=== PATIENT | female | born 2000 | race Caucasian/White ===

== ENCOUNTER → 2021-02-15 | Outpatient (CLI) | payer OTHER ==
[~2021-02-15] MED LIST: IBUP400 PO; NAPR220 PO
== END ==
LOC: LAB SHORT 10:20 → LAB 10:20
DX: Z32.00 Encounter for pregnancy test, result unknown (principal)
CPT/HCPCS: 84702

== ENCOUNTER → 2022-01-24 | Outpatient (CLI) | payer OTHER ==
[2022-01-24 18:33] LABS: Free Thyroxine 0.99 ng/dL (0.70-1.60)
[2022-01-24 18:37] LABS: Thyroid Stimulating Hormone 1.16 uIU/mL (0.360-4.800); Triiodothyronine, Free 3.07 pg/mL (2.18-3.98)
== END | disposition home or self-care (01) ==
LOC: LAB 15:30 → LAB SHORT 15:30
PROVIDERS: Registered Nurse Community Health
DX: N92.0 Excessive and frequent menstruation with regular cycle (principal)
CPT/HCPCS: 84439; 84443; 84481

== ENCOUNTER → 2022-02-08 | Outpatient (CLI) | payer OTHER | LOC: LAB 15:12 → LAB SHORT 15:12 | DX: N97.9 Female infertility, unspecified (principal) | CPT/HCPCS: 84144 ==

== ENCOUNTER → 2022-07-31 | Outpatient (CLI) | payer OTHER ==
[2022-07-31 16:57] LABS: Source, Urine Clean Catch
[2022-07-31 17:47] LABS: Appearance, Urine Clear (Clear); Bilirubin, Urine Neg (Neg); Blood, Urine Neg (Neg); Glucose Qualitative, Urine Neg (Neg); Ketones, Urine Neg (Neg); Leukocyte Esterase, Urine Neg (Neg); Nitrite, Urine Neg (Neg); Protein, Urine Neg (Neg); Specific Gravity, Urine 1.015 (1.003-1.022); Urobilinogen, Urine NORM (Normal)
[2022-07-31 17:54] LABS: Color, Urine Pale Yellow (P-Yellow)
[2022-07-31 17:57] LABS: BASOPHILS ABSOLUTE AUTO 0.06 K/mm3 (0.00-0.23); BASOPHILS PERCENT AUTO 1 % (0-2); EOSINOPHILS ABSOLUTE AUTO 0.08 K/mm3 (0.00-0.68); EOSINOPHILS PERCENT AUTO 1 % (0-6); Hematocrit 39.9 % (33.0-51.0); Hemoglobin 13.7 g/dL (11.5-16.0); IMMATURE GRAN ABSOLUTE AUTO 0.02 K/mm3 (0.00-0.10); IMMATURE GRAN PERCENT AUTO 0 % (0-1); LYMPHOCYTES ABSOLUTE AUTO 2.64 K/mm3 (0.84-5.20); LYMPHOCYTES PERCENT AUTO 28 % (21-46); MONOCYTES ABSOLUTE AUTO 0.49 K/mm3 (0.16-1.47); MONOCYTES PERCENT AUTO 5 % (4-13); Mean Corpuscular HGB 27.9 pg (26.0-34.0); Mean Corpuscular HGB Conc 34.3 g/dL (31.5-36.5); Mean Corpuscular Volume 81 fL (80-100); Mean Platelet Volume 10.5 fL (9.1-12.4); NEUTROPHILS ABSOLUTE AUTO 6.06 K/mm3 (1.96-9.15); NEUTROPHILS PERCENT AUTO 65 % (41-73); Platelet Count 303 K/mm3 (150-400); RDW Coefficient Variation 12.7 % (11.7-14.2); RDW Standard Deviation 37.5 fL (35.1-46.3); Red Blood Cell Count 4.91 M/mm3 (3.80-5.20); White Blood Cell Count 9.35 K/mm3 (4.00-11.30)
[2022-08-01 07:11] LABS: HIV AB/P24 AG SCREEN Non Reactive (Non Reactive)
[2022-08-01 10:11] LABS: HBSAG SCREEN Negative (Negative)
== END | disposition home or self-care (01) ==
LOC: LAB SHORT 15:40
PROVIDERS: Registered Nurse Community Health
DX: Z34.91 Encounter for supervision of normal pregnancy, unspecified, first trimester (principal)
CPT/HCPCS: 80055; 81003; 84443; 84702; 87086; 87389

== ENCOUNTER → 2022-09-09 | Outpatient (CLI) | payer OTHER ==
[2022-09-11 00:11] LABS: CHLAMYDIA TRACHOMATIS, NAA Negative (Negative)
== END | disposition home or self-care (01) ==
LOC: LAB 13:31 → LAB SHORT 13:31
PROVIDERS: Registered Nurse Community Health
DX: Z34.91 Encounter for supervision of normal pregnancy, unspecified, first trimester (principal)
CPT/HCPCS: 87491; 87591

== ENCOUNTER → 2023-01-09 | Outpatient (CLI) | payer OTHER ==
[2023-01-09 19:12] LABS: Hematocrit 34.6 % (33.0-51.0)
== END | disposition home or self-care (01) ==
LOC: LAB 15:05 → LAB SHORT 15:05
PROVIDERS: Registered Nurse Community Health
DX: Z34.03 Encounter for supervision of normal first pregnancy, third trimester (principal)
CPT/HCPCS: 82950; 85014; 85018

== ENCOUNTER → 2023-03-03 | Outpatient (CLI) | payer OTHER | END | disposition home or self-care (01) | LOC: LAB SHORT 12:50 → LAB 12:50 | DX: Z34.03 Encounter for supervision of normal first pregnancy, third trimester (principal) | CPT/HCPCS: 87081; 87150 ==

== ENCOUNTER → 2023-06-09 | Outpatient (CLI) | payer OTHER ==
[~2023-06-09] MED LIST changes: +IBUP800; +PRENATAL TABLE1 EAC2 PO
[2023-06-09 17:46] LABS: BASOPHILS ABSOLUTE AUTO 0.02 K/mm3 (0.00-0.23); BASOPHILS PERCENT AUTO 0 % (0-2); EOSINOPHILS ABSOLUTE AUTO 0.11 K/mm3 (0.00-0.68); EOSINOPHILS PERCENT AUTO 2 % (0-6); Hematocrit 36.1 % (33.0-51.0); Hemoglobin 11.9 g/dL (11.5-16.0); IMMATURE GRAN ABSOLUTE AUTO 0.01 K/mm3 (0.00-0.10); IMMATURE GRAN PERCENT AUTO 0 % (0-1); LYMPHOCYTES PERCENT AUTO 40 % (21-46); MONOCYTES ABSOLUTE AUTO 0.28 K/mm3 (0.16-1.47); MONOCYTES PERCENT AUTO 5 % (4-13); Mean Corpuscular HGB 26.4 pg (26.0-34.0); Mean Corpuscular Volume 80 fL (80-100); Mean Platelet Volume 11.2 fL (9.1-12.4); NEUTROPHILS ABSOLUTE AUTO 2.69 K/mm3 (1.96-9.15); NEUTROPHILS PERCENT AUTO 52 % (41-73); Platelet Count 290 K/mm3 (150-400); RDW Coefficient Variation 12.1 % (11.7-14.2); RDW Standard Deviation 35.1 fL (35.1-46.3); White Blood Cell Count 5.21 K/mm3 (4.00-11.30)
== END | disposition home or self-care (01) ==
LOC: LAB 17:03 → LAB SHORT 17:03
PROVIDERS: Registered Nurse Community Health
DX: R10.2 Pelvic and perineal pain (principal)
CPT/HCPCS: 85025; 87070; 87205

== ENCOUNTER → 2024-07-13 | Outpatient (CLI) | payer OTHER | LOC: LAB 16:41 → LAB SHORT 16:41 | DX: Z32.01 Encounter for pregnancy test, result positive (principal) | CPT/HCPCS: 84702 ==

== ENCOUNTER → 2024-07-15 | Outpatient (CLI) | payer OTHER ==
[2024-07-15 15:36] LABS: Progesterone 5.4 ng/mL
== END ==
LOC: LAB 13:26 → LAB SHORT 13:26
PROVIDERS: Registered Nurse Community Health
DX: Z34.91 Encounter for supervision of normal pregnancy, unspecified, first trimester (principal)
CPT/HCPCS: 84144; 84702

== ENCOUNTER → 2024-08-04 | Outpatient (CLI) | payer OTHER ==
[2024-08-04 09:50] LABS: Source, Urine Clean Catch
[2024-08-04 11:49] LABS: BASOPHILS ABSOLUTE AUTO 0.02 K/mm3 (0.00-0.23); BASOPHILS PERCENT AUTO 0 % (0-2); EOSINOPHILS ABSOLUTE AUTO 0.08 K/mm3 (0.00-0.68); EOSINOPHILS PERCENT AUTO 1 % (0-6); Hematocrit 35.6 % (33.0-51.0); Hemoglobin 12.2 g/dL (11.5-16.0); IMMATURE GRAN ABSOLUTE AUTO 0.02 K/mm3 (0.00-0.10); IMMATURE GRAN PERCENT AUTO 0 % (0-1); LYMPHOCYTES ABSOLUTE AUTO 1.78 K/mm3 (0.84-5.20); LYMPHOCYTES PERCENT AUTO 29 % (21-46); MONOCYTES ABSOLUTE AUTO 0.28 K/mm3 (0.16-1.47); MONOCYTES PERCENT AUTO 5 % (4-13); Mean Corpuscular HGB 27.5 pg (26.0-34.0); Mean Corpuscular HGB Conc 34.3 g/dL (31.5-36.5); Mean Corpuscular Volume 80 fL (80-100); Mean Platelet Volume 9.8 fL (9.1-12.4); NEUTROPHILS ABSOLUTE AUTO 3.99 K/mm3 (1.96-9.15); NEUTROPHILS PERCENT AUTO 65 % (41-73); Platelet Count 236 K/mm3 (150-400); RDW Coefficient Variation 12.8 % (11.7-14.2); RDW Standard Deviation 37.2 fL (35.1-46.3); Red Blood Cell Count 4.44 M/mm3 (3.80-5.20); White Blood Cell Count 6.17 K/mm3 (4.00-11.30)
[2024-08-04 11:59] LABS: Appearance, Urine Clear (Clear); Bilirubin, Urine Neg (Neg); Blood, Urine Neg (Neg); Color, Urine Yellow (P-Yellow); Glucose Qualitative, Urine Neg (Neg); Ketones, Urine Neg (Neg); Leukocyte Esterase, Urine 1+ (Neg); Nitrite, Urine Neg (Neg); Protein, Urine Neg (Neg); Specific Gravity, Urine 1.015 (1.003-1.022); Urobilinogen, Urine NORM (Normal)
[2024-08-04 12:09] LABS: Bacteria Mod /hpf; Red Blood Cells, Urine 0-2 /hpf (0-2); Squamous Epithelial Cells Many /hpf (Few)
[2024-08-06 09:35] LABS: HEPATITIS B SURFACE ANTIGEN Negative (Negative)
[2024-08-06 11:13] LABS: HEPATITIS C AB CIA INTERP Negative (Negative); HEPATITIS C ANTIBODY CIA INDEX 0.19 IV
[2024-08-06 14:51] LABS: HIV 1,2 COMBO ANTIGEN/ANTIBODY Negative (Negative)
== END | disposition home or self-care (01) ==
LOC: LAB SHORT 09:41 → LAB 09:41
PROVIDERS: Registered Nurse Community Health
DX: Z34.91 Encounter for supervision of normal pregnancy, unspecified, first trimester (principal)
CPT/HCPCS: 81001; 84443; 86803; 87086; 87340; 87389

== ENCOUNTER → 2024-08-19 | Outpatient (CLI) | payer OTHER ==
[2024-08-19 18:46] LABS: Chlamydia Trachomatis Urine NOT DETECTED (NOT DETECT); Neisseria Gonorrhoea Urine NOT DETECTED (NOT DETECT)
== END ==
LOC: LAB 15:28 → LAB SHORT 15:28
PROVIDERS: Registered Nurse Community Health
DX: Z34.91 Encounter for supervision of normal pregnancy, unspecified, first trimester (principal)
CPT/HCPCS: 87491; 87591

== ENCOUNTER → 2025-02-21 | Outpatient (CLI) | payer OTHER | LOC: LAB 18:30 → LAB SHORT 18:30 | DX: Z34.83 Encounter for supervision of other normal pregnancy, third trimester (principal) | CPT/HCPCS: 87081; 87150 ==

== ENCOUNTER 2025-03-09 10:03 | Inpatient (IN) | payer OTHER ==
[2025-03-09] VITALS (43 sets, daily range): BP systolic 107–192; BP diastolic 58–98
[~2025-03-09] VITALS: Ht 175.3 cm; Wt 110.2 kg
[2025-03-09] MEDS ORDERED: OXYTOCIN/RINGER'S LACTATE 500 ML IV SCH (10:45)
[2025-03-09] MEDS ORDERED: FentaNYL Citrate 50 MCG/ML 2 ML Injection IV PRN (10:45)
[2025-03-09] MEDS ORDERED: FentaNYL 2mcg/ml-Bup 0.1% Epd 250 ML EPI PRN (10:50)
[2025-03-09] MEDS ORDERED: OXYTOCIN/RINGER'S LACTATE 500 ML IV PRN (10:50)
[2025-03-09] MEDS ORDERED: ePHEDrine Sulfate 50 MG/ML 1ML Injection XX PRN (10:50)
[2025-03-09] MEDS ORDERED: Tranexamic Acid 100 ML IV SCH (10:50)
[2025-03-09] MEDS ORDERED: Carboprost Tromethamine 250 MCG/ML 1ML Amp IM PRN (10:50)
[2025-03-09] MEDS ORDERED: Ondansetron HCl 2 MG / ML 2ML Vial IV PRN (10:50)
[2025-03-09] MEDS ORDERED: Oxytocin 10 Unit / ML Vial IM PRN (10:50)
[2025-03-09] MEDS ORDERED: Methylergonovine Maleate 0.2MG / ML 1ML Amp IM PRN (10:50)
[2025-03-09 11:12] LABS: BASOPHILS ABSOLUTE AUTO 0.02 K/mm3 (0.00-0.23); BASOPHILS PERCENT AUTO 0 % (0-2); EOSINOPHILS ABSOLUTE AUTO 0.07 K/mm3 (0.00-0.68); EOSINOPHILS PERCENT AUTO 1 % (0-6); Hematocrit 32.7 % (33.0-51.0); Hemoglobin 11.5 g/dL (11.5-16.0); IMMATURE GRAN ABSOLUTE AUTO 0.04 K/mm3 (0.00-0.10); IMMATURE GRAN PERCENT AUTO 1 % (0-1); LYMPHOCYTES ABSOLUTE AUTO 1.86 K/mm3 (0.84-5.20); LYMPHOCYTES PERCENT AUTO 21 % (21-46); MONOCYTES ABSOLUTE AUTO 0.48 K/mm3 (0.16-1.47); MONOCYTES PERCENT AUTO 6 % (4-13); Mean Corpuscular HGB Conc 35.2 g/dL (31.5-36.5); Mean Corpuscular Volume 81 fL (80-100); NEUTROPHILS ABSOLUTE AUTO 6.27 K/mm3 (1.96-9.15); NEUTROPHILS PERCENT AUTO 72 % (41-73); NRBC ABSOLUTE 0.00 K/mm3 (0.00-0.02); NRBC Auto 0.0 /100 WBC (0.0-0.2); RDW Coefficient Variation 12.9 % (11.7-14.2); RDW Standard Deviation 37.7 fL (35.1-46.3)
--- NOTE | 2025-03-09 13:06 | NUR ---
"Spiritual Care Visit | Pt. request Pt. is sitting up on a stool when she welcomes my visit. Sp. is at bedside as is another family memeber and a nurse. Pt. verbalizes concerns about the length of delivery and the size of the baby. Facilitated some life review and prayed for the Pt. Pt. 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
[2025-03-09 16:37] LABS: BASOPHILS ABSOLUTE AUTO 0.02 K/mm3 (0.00-0.23); BASOPHILS PERCENT AUTO 0 % (0-2); EOSINOPHILS ABSOLUTE AUTO 0.06 K/mm3 (0.00-0.68); EOSINOPHILS PERCENT AUTO 1 % (0-6); Hematocrit 32.1 % (33.0-51.0); Hemoglobin 11.2 g/dL (11.5-16.0); IMMATURE GRAN ABSOLUTE AUTO 0.04 K/mm3 (0.00-0.10); IMMATURE GRAN PERCENT AUTO 1 % (0-1); LYMPHOCYTES ABSOLUTE AUTO 1.96 K/mm3 (0.84-5.20); LYMPHOCYTES PERCENT AUTO 22 % (21-46); MONOCYTES ABSOLUTE AUTO 0.45 K/mm3 (0.16-1.47); MONOCYTES PERCENT AUTO 5 % (4-13); Mean Corpuscular HGB Conc 34.9 g/dL (31.5-36.5); Mean Corpuscular Volume 82 fL (80-100); NEUTROPHILS ABSOLUTE AUTO 6.30 K/mm3 (1.96-9.15); NEUTROPHILS PERCENT AUTO 71 % (41-73); NRBC ABSOLUTE 0.00 K/mm3 (0.00-0.02); NRBC Auto 0.0 /100 WBC (0.0-0.2); Platelet Count 209 K/mm3 (150-400); RDW Coefficient Variation 13.0 % (11.7-14.2); RDW Standard Deviation 38.5 fL (35.1-46.3)
--- NOTE | 2025-03-09 18:15 | NUR ---
[facility] charting reviewed
[2025-03-10] VITALS (16 sets, daily range): BP systolic 102–143; BP diastolic 55–78
[2025-03-10] MEDS ORDERED: Witch Hazel/Glycerin PADS TOP PRN (04:00)
[2025-03-10] MEDS ORDERED: OXYTOCIN/RINGER'S LACTATE 500 ML IV SCH (04:05)
[2025-03-10] MEDS ORDERED: Oxytocin 10 Unit / ML Vial IM ONE (04:05)
[2025-03-10] MEDS ORDERED: Acetaminophen/Codeine 300-30 mg PO PRN (04:05)
[2025-03-10] MEDS ORDERED: OxyCODONE 5 mg/Acetamin 325 mg TABLET PO PRN (04:05)
[2025-03-10] MEDS ORDERED: Benzocaine Topical Anesthetic Spray 60GM TOP PRN (04:05)
[2025-03-10] MEDS ORDERED: Methylergonovine Maleate 0.2MG / ML 1ML Amp IM PRN (04:10)
[2025-03-10] MEDS ORDERED: Ketorolac Tromethamine 30mg Vial IV PRN (04:10)
[2025-03-10] MEDS ORDERED: Prenatal Vit/FE Fumarate/FA 1 Tab PO SCH (09:00)
[2025-03-11 04:33] VITALS: BP 97/53
[2025-03-11 08:11] VITALS: BP 112/74
--- NOTE | 2025-03-11 09:25 | NUR ---
"Spiritual Care | Baby [place] Pt. had baby boy on her lap when she welcomed my visit. Spouse is at bedside. Facilitated an update of the delivery process and their older boy meeting the baby. Pt. and spouse both display evidence of camille and expectation. Prayed a blessing over the baby and the family. Pt. and spouse verbalized gratitude for the spiritual care visits."
[2025-03-11] MEDS ORDERED: IBUP800 PO (11:14)
[2025-03-11 12:52] VITALS: BP 118/74
--- NOTE | 2025-03-13 16:24 | NUR ---
UPDATED PER EMR
== END 2025-03-11 13:00 | disposition home or self-care (01) | DRG 807 ==
LOC: OBS 10:03 → BC 10:03 → OBS 10:12 → BC 19:41
PROVIDERS: ADMIT Registered Nurse Community Health
PROC: 4A1HXCZ Monitoring of Products of Conception, Cardiac Rate, External Approach (ICD-10-PCS; 2025-03-09)
PROC: 10907ZC Drainage of Amniotic Fluid, Therapeutic from Products of Conception, Via Natural or Artificial Opening (ICD-10-PCS; 2025-03-09)
PROC: 3E033VJ Introduction of Other Hormone into Peripheral Vein, Percutaneous Approach (ICD-10-PCS; 2025-03-09)
PROC: 10E0XZZ Delivery of Products of Conception, External Approach (ICD-10-PCS; principal; 2025-03-10)
PROC: 0HQ9XZZ Repair Perineum Skin, External Approach (ICD-10-PCS; 2025-03-10)
DX: O36.63X0 Maternal care for excessive fetal growth, third trimester, not applicable or unspecified (principal); Z37.0 Single live birth; O99.214 Obesity complicating childbirth; Z3A.39 39 weeks gestation of pregnancy; E66.812 Obesity, class 2; O69.81X0 Labor and delivery complicated by cord around neck, without compression, not applicable or unspecified; O70.0 First degree perineal laceration during delivery
CPT/HCPCS: 36415; 51702; 85025; 86850; 86900; 86901; 86923; A9270; J1885; J2405; J2590; J7120